=== PATIENT | male | born 1955 | race Two or more races ===

== ENCOUNTER 2018-08-31 03:13 | Emergency (ER) | payer SELFPAY ==
[~2018-08-31] VITALS: Ht 170.2 cm; Wt 79.4 kg
[2018-08-31] MEDS ORDERED: HYDROCODONE/APAP 5-325MG TABLET ONE (04:40)
[2018-08-31 04:42] VITALS: BP 115/71
--- NOTE | 2018-08-31 04:42 | NUR ---
Patient discharged to home in stable conditon. Written and verbal after care instructions given. Patient verbalizes understanding of instructions.
[2018-08-31] MEDS ORDERED: HYDROCODONE/APAP 5-325MG TABLET PO ONE (04:45)
== END 2018-08-31 04:44 | disposition home or self-care (01) ==
LOC: ER 03:20
DX: S50.01XA Contusion of right elbow, initial encounter (principal); Z59.0 Homelessness; W19.XXXA Unspecified fall, initial encounter; Y93.89 Activity, other specified; Y92.89 Other specified places as the place of occurrence of the external cause; Y99.8 Other external cause status
CPT/HCPCS: 73090; 99284; A4663

== ENCOUNTER 2018-09-04 21:33 | Emergency (ER) | payer SELFPAY ==
[~2018-09-04] VITALS: Ht 165.1 cm; Wt 74.8 kg
--- NOTE | 2018-09-04 22:12 | NUR ---
PT WENT DOWN TO RADIOLOGY DEPT FOR CT SCAN.
[2018-09-04] MEDS ORDERED: HYDROCODONE/APAP 10-325 MG TABLET ONE (23:49)
--- NOTE | 2018-09-04 23:59 | NUR ---
Patient discharged to home in stable conditon. Written and verbal after care instructions given. Patient verbalizes understanding of instructions. Pt ambulated out of ER in steady gait. All belongings with pt. VSS. NAD noted.
[2018-09-05] MEDS ORDERED: HYDROCODONE/APAP 10-325 MG TABLET PO ONE
[2018-09-05 00:02] VITALS: BP 111/69
== END 2018-09-05 00:02 | disposition home or self-care (01) ==
LOC: ER 21:35
DX: M79.631 Pain in right forearm (principal); Z88.0 Allergy status to penicillin; Z59.0 Homelessness
CPT/HCPCS: 36415; 73200; 84484; 93005; 99285; A4663; 70030-TC